=== PATIENT | female | born 1960 ===

== ENCOUNTER → 2019-03-13 | Outpatient (CLI) | payer BC ==
[~2019-03-13] MED LIST: ALBU8.5H IH; ALPR-429 PO; AMIT100T53 PO; CALC500T6 PO; FLUT1AER INH; LACT1CAP6 PO; LANS30CA63 PO; LUBI24CA14 PO; MAGN27TA6 PO
[2019-03-13 17:16] LABS: PLATELET COUNT, AUTOMATED 279 K/uL (150-450)
[2019-03-13 17:45] LABS: LDL CHOLESTEROL 77 mg/dl
== END ==
LOC: LAB 16:45
PROVIDERS: ATTEND Internal Medicine
DX: F41.9 Anxiety disorder, unspecified (principal); J45.909 Unspecified asthma, uncomplicated; G35 Multiple sclerosis; Z85.3 Personal history of malignant neoplasm of breast
CPT/HCPCS: 36415; 82040; 82247; 82306; 82310; 82374; 82435; 82465; 82565; 82947; 83718; 84075; 84132; 84155; 84295; 84443; 84450; 84460; 84478; 84520; 85025

== ENCOUNTER → 2019-05-06 | Outpatient (CLI) | payer BC ==
[~2019-05-06] MED LIST changes: +CHOL500025 PO; +GADOBENATE 529MG/1ML 15ML VIAL IVP ONE
--- NOTE | 2019-05-06 16:10 | RADIOLOGY IMAGING REPORT ---
FACILITY: [facility] - [place] PATIENT NAME: Kristine Nash : 1960 MR: [id number] V: [id number] EXAM DATE: ORDERING PHYSICIAN: JONH GREEN TECHNOLOGIST: Location: [facility] [place] Patient: Kristine Nash : 1960 Visit/Account:[id number] Date of Sevice: 05/06/2019 EXAMINATION: MRI Brain without intravenous contrast MRI Brain with intravenous contrast HISTORY: Multiple sclerosis. COMPARISON: None available. TECHNIQUE: Multi-planar, multi-sequence brain MRI was performed before and after IV gadolinium. CONTRAST: 15 mL of IV MultiHance FINDINGS: Brain volume: Normal. Sagittal midline structures: Negative. Ventricles: Negative. Acute ischemic changes: None. Hemorrhage: None. Masses / edema: None. Enhancement: Negative. Larson-white: Negative. White matter: Mild to moderate patchy FLAIR hyperintensity in the periventricular, deep, and subcort ical white matter in keeping with multiple sclerosis. No restricted diffusion or enhancement. Vessels: Negative. Extra-axial: Negative. Calvarium / scalp: Negative. Skull base: Negative. Visualized sinuses / orbits: Leftward nasal septal deviation. Visualized upper neck: Negative. IMPRESSION: 1. No acute intracranial abnormality or mass. 2. Mild to moderate patchy FLAIR hyperintensity in the periventricular, deep, and subcortical white matter in keeping with multiple sclerosis. No abnormal enhancement or restricted diffusion. Report Dictated By: Konrad More MD at 05/06/2019 4:00 PM Report E-Signed By: Konrad More MD at 05/06/2019 4:05 PM WSN:[id number]
--- NOTE | 2019-05-08 10:48 | RADIOLOGY IMAGING REPORT ---
FACILITY: [facility] PATIENT NAME: EVAN COTA : [id number] MR: [id number] V: [id number] EXAM DATE: [id number] ORDERING PHYSICIAN: JONH GREEN TECHNOLOGIST: Richelle Marquez PROCEDURE:BILATERAL DIAGNOSTIC DIGITAL MAMMOGRAM WITH CAD ASSISTED INTERPRETATION & 3D TOMOSYNTHESIS REASON FOR STUDY: Prior hx of Right sided breast cancer FAMILY HISTORY OF BREAST CANCER: Mother in her 60's & self BREAST PROCEDURES/TREATMENTS: A surgical biopsy & lumpectomy of the Right breast in 2003 followed by radiation therapy & chemotherapy. COMPARISON STUDIES: 10/03/17, 09/28/16, 10/05/15, 06/05/14, 03/20/13 MAMMOGRAM VIEWS OBTAINED: Bilateral 2D & 3D full field CC & MLO projections & a 2D & 3D Left CC spot compression view BREAST DENSITY: The breasts are heterogeneously dense which can obscure small masses. MAMMOGRAM FINDINGS: Again there is an area of postsurgical scarring & architectural distortion in the upper outer quadrant of the Right breast from prior lumpectomy. The parenchymal pattern has remained stable allowing for difference in mammographic technique & patient positioning. DIAGNOSTIC CATEGORY 2--BENIGN FINDING. RECOMMENDATIONS: ROUTINE MAMMOGRAM AND CLINICAL EVALUATION. IMPRESSION: BIRADS 2: Benign finding. Dictated by: Jennifer Kemp M.D. on 05/06/2019 at 17:43 Transcribed by: KALA on 05/07/2019 at 14:05 Approved by: Jennifer Kemp M.D. on 05/08/2019 at 10:46 [facility]
== END ==
LOC: MAMO 01:16
PROVIDERS: ATTEND Internal Medicine
DX: G35 Multiple sclerosis (principal); Z85.3 Personal history of malignant neoplasm of breast
CPT/HCPCS: 70553; 77062; 77066; A9577

== ENCOUNTER 2019-05-20 10:00 | Outpatient (RCR) | payer BC ==
[2019-04-15 15:10] VITALS: BP 125/80
--- NOTE | 2019-04-17 01:54 | ONCOLOGY CONSULTATION ---
EVENT DATE: April 15, 2019 CHIEF COMPLAINT/REASON FOR VISIT Ms. Nash is a very pleasant 58-year-old female with a history of right-sided breast cancer, diagnosed in 2003, with lymph node involvement. She was treated with surgery, radiation therapy, chemotherapy, and hormonal therapy. HISTORY OF PRESENT ILLNESS Ms. Nash presents to [facility]. She is a long-term survivor for reportedly stage III breast cancer. She was treated with combination therapy with surgery, radiation, chemotherapy (unknown regimen), as well as hormonal therapy. Based on the description as well as her age at diagnosis (43), this was likely tamoxifen. She does not know if she had BRCA2 mutation analysis. We have no record of it. She and her disagree on whether or not she had it. She has two daughters, and she is more concerned about this now. She did have a total abdominal hysterectomy as well as a bilateral salpingo-oophorectomy due to bleeding, again a suspicion for tamoxifen as the hormonal therapy choice, so we do not need to consider that if she would be BRCA-positive. Depending on the type of BRCA, we may require some additional screening tests. The indication for her to have the test is her age at diagnosis. She has a strong family history too, with two paternal aunts with breast cancer, and prostate cancer in the family as well. Please see the past medical history expertly outlined by Dr. Godfrey for more details on that. MEDICATION LIST Reviewed. REVIEW OF SYSTEMS CONSTITUTIONAL: No fevers, chills, significant weight change. HEENT: No headache, vision changes. CARDIOVASCULAR: No chest pain, dyspnea on exertion, edema. RESPIRATORY: No shortness of breath, wheeze, cough. GI: No nausea, vomiting, diarrhea, constipation. : No dysuria, hematuria MUSCULOSKELETAL: No weakness, joint pain. NEUROLOGIC: No headaches, numbness. HEMATOLOGIC: No bruising, bleeding. SKIN: No concerning skin rashes or lesions. Remainder of 14-point review of systems otherwise negative. PHYSICAL EXAMINATION VITAL SIGNS: Blood pressure 120/80, pulse 79, respiratory rate 16, temperature 96.5 Fahrenheit, oxygen saturation 95% on room air. Weight 86.5 kg. Pain 0/10, fatigue 0/10. GENERAL: Stable condition, resting comfortably in the chair. HEENT: Normocephalic, atraumatic. LYMPHATIC: No appreciable cervical, supraclavicular, axillary adenopathy. CARDIOVASCULAR: Regular rate and rhythm. LUNGS: Clear to auscultation bilaterally. ABDOMEN: Soft, nontender, nondistended. BREASTS: Exam normal bilaterally. There is scar tissue in the axilla that she believes is unchanged. I feel no nodularity of concern or any other abnormalities. She does have an upcoming mammogram, which will be helpful as well. I advised her it would be important to get a breast exam annually with her annual mammograms, given her history. Remainder of physical exam otherwise unremarkable. IMPRESSION/REPORT/PLAN Ms. Nash is a pleasant 58-year-old female patient of Dr. Godfrey with the followin. Likely stage III right-sided breast cancer, treated with surgery, radiation, chemotherapy, and hormonal therapy. She is a long-term survivor. I completely agree with the lab workup by Dr. Godfrey, including the thyroid panel and lipids. Her vitamin D is slightly low, and I think it would be very appropriate to replace this with an [id number] supplement. I also think it would be important to follow bone density testing every three years. Her breast exam was normal today. She is getting her mammogram upcoming with Dr. Godfrey. I agree with seeing Oncology approximately every one to two years. We would be happy to do the breast exam concurrently with her mammogram, and so we will see her back in approximately one year. 2. Genetic counseling. I spent extensive time today just counseling her regarding BRCA1/BRCA2. Given her young age as well as strong family history, I think it would be very important to test this. She has two daughters, and it would be useful for them as well. She has already had a hysterectomy and salpingo-oophorectomy bilaterally. Answered all of her many questions today. BILLING New patient level 4. Total time 45 minutes, counseling time 30. MTDD
[~2019-05-20 10:00] MED LIST changes: -GADOBENATE 529MG/1ML 15ML VIAL IVP ONE
[2019-05-20 11:05] VITALS: BP 128/79
== END 2019-06-12 13:16 | disposition home or self-care (01) ==
LOC: SPU 10:00
PROVIDERS: ATTEND Internal Medicine
DX: Z85.3 Personal history of malignant neoplasm of breast (principal); Z92.21 Personal history of antineoplastic chemotherapy; Z92.3 Personal history of irradiation
CPT/HCPCS: 36415; 99202

== ENCOUNTER → 2019-07-18 | Outpatient (CLI) | payer BC ==
[~2019-07-18] MED LIST changes: +DALFAM10PT GT; +TERI14TA PO
--- NOTE | 2019-07-18 15:07 | RADIOLOGY IMAGING REPORT ---
FACILITY: [facility] PATIENT NAME: Kristine Nash : 1960 MR: [id number] V: [id number] EXAM DATE: ORDERING PHYSICIAN: JONH GREEN TECHNOLOGIST: Location: [facility] - [place] Patient: Kristine Nash : 1960 Visit/Account:[id number] Date of Sevice: 07/18/2019 Exam: KUB SINGLE VIEW ABDOMEN Indication: possible hernia RT inguinal, constipation, RAD Comparison: None available Findings: There is a nonobstructive bowel gas pattern. Moderate stool burden is noted throughout the colon. Multiple swallow tablets are seen throughout the colon. There is no evidence of pneumoperitoneum. IMPRESSION: 1. Moderate constipation Report Dictated By: Abel Segura at 07/18/2019 2:56 PM Report E-Signed By: Abel Segura at 07/18/2019 2:58 PM WSN:[email or web address]
--- NOTE | 2019-07-18 17:06 | RADIOLOGY IMAGING REPORT ---
[place] [facility] [place]: Kristine Nash : 1960 MR: [id number] V: [id number] EXAM DATE: ORDERING PHYSICIAN: JONH GREEN TECHNOLOGIST: Location: [facility] Patient: Kristine Nash : 1960 Visit/Account:[id number] Date of Sevice: 07/18/2019 EXAMINATION: Ultrasound of the right groin 07/18/2019 7:35 AM HISTORY: possible hernia RT inguinal COMPARISON: Separate KUB today FINDINGS: Imaging of the right groin was done without and with Valsalva. No inguinal hernia was dem onstrated. No adenopathy. No mass or fluid collection. IMPRESSION: Unremarkable right inguinal ultrasound. No hernia demonstrated. Report Dictated By: Cr Rucker MD at 07/18/2019 3:59 PM Report E-Signed By: Cr Rucker MD at 07/18/2019 4:58 PM WSN:[email or web address]
== END ==
LOC: US 04:01
PROVIDERS: ATTEND Internal Medicine
DX: R10.31 Right lower quadrant pain (principal); G35 Multiple sclerosis; K59.00 Constipation, unspecified
CPT/HCPCS: 74018; 76705